=== PATIENT | male | born 1965 | race Caucasian/White ===

== ENCOUNTER 2016-07-18 20:17 | Emergency (ER) | payer OTHER ==
[2016-07-18] MEDS ORDERED: ONDANSETRON 4 MG/2 ML VIAL ONE (20:35)
--- NOTE | 2016-07-18 20:37 | EDPHY ---
H & P - Medical/Surgical History Hx Asthma: Yes Hx Chronic Respiratory Disease: No Hx Diabetes: No Hx Cardiac Disease: No Hx Renal Disease: No Hx Cirrhosis: No Hx Alcoholism: No Hx HIV/AIDS: No Hx Splenectomy or Spleen Trauma: No Other PMH: Childhood asthma, hernia repair, shotsky's ring, fatty tumors, - Social History Smoking Status: Never smoked Time Seen by Provider: 07/18/16 20:36 Constitutional: Initial Vital Signs Temperature (C) 36.4 C 07/18/16 20:39 Heart Rate 103 H 07/18/16 20:39 Respiratory Rate 16 07/18/16 20:39 Blood Pressure 111/79 07/18/16 20:39 O2 Sat (%) 88 L 07/18/16 20:39 O2 Delivery Mode Room Air O2 (L/minute) 2 Allergies/Adverse Reactions: No Known Allergies Allergy (Unverified 07/18/16 20:38) Home Medications: Medication Instructions Recorded Ondansetron Odt [Zofran Odt 4 mg 4 mg PO Q4PRN PRN #7 tab 07/18/16 (*)] Medical Decision Making ED Course/Re-evaluation: CHIEF COMPLAINT: Vomiting, hx of Boerhaave's HISTORY OF PRESENT ILLNESS: The patient is a 51 y/o male arriving with this complaining of vomiting onset today with associated "acid refluxy feel." 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 He presents today due to concern for repeat rupture. He doesn't know the cause of his vomiting today or during the previous episode. He denies other pertinent medical history. REVIEW OF SYSTEMS: A 10 point review of systems was performed and is negative with the exception of the elements mentioned in the history of present illness. PHYSICAL EXAM: HR, BP, O2 Sat, RR. Temp noted General Appearance: Alert, well hydrated, appropriate, pale, uncomfortable appearing Head: Atraumatic without scalp tenderness or obvious injury Eyes: Pupils equal, round, reactive to light and accommodation, EOMI, no trauma , no injection. Ears: Clear bilaterally, no perforation, normal landmarks Nose: Atraumatic, no rhinorrhea, clear. Throat: There is no erythema or exudates, no lesions, normal tonsils, mucus membranes moist. Neck: Supple, 2+ carotid upstroke, nontender, no lymphadenopathy. Respiratory: No retractions, no distress, no wheezes, and no accessory muscle use. Lungs are clear to auscultation bilaterally. Cardiovascular: Regular rate and rhythm, no murmurs, rubs, or gallops. Good capillary refill all extremities. Gastrointestinal: Abdomen is soft, nontender, non-distended, no masses, no rebound, no guarding, no peritoneal signs. Musculoskeletal: Normal active ROM of all extremities, atraumatic. Neurological: Alert, appropriate, and interactive. The patient has normal DTRs and non-focal cranial nerves, motor, sensory, and cerebellar exam. Skin: No rashes, good turgor, no nodules on palpation. Past medical history: Boerhaave ruptured esophagus, Schatzki ring Past surgical history: esophagus rupture requiring emergent thoracotomy by Dr. Stubbs 03/20/15; cholecystectomy Family history: Noncontributory Social history: at bedside DIFFERENTIAL DIAGNOSIS: The differential diagnosis for the patient's nausea and vomiting included but was not limited to gastroenteritis, gastritis, appendicitis, and medication side effect. 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 He appears pale and uncomfortable on exam. He is not actively vomiting. His abdomen is benign. I consulted with radiologist to determine the best imaging to rule out recurrent rupture. He recommended an esophagram. Plan to control nausea and prevent vomiting. IV established. Labs drawn including CBC, CHEM, lipase, LFTs. 2L IV NS , 4mg IV Zofran, and 12.5mg IV Phenergan administered. 2100: Patient signed out to Dr. Almaguer at shift change pending imaging results. Dr. Almaguer will discharge home with diagnosis of gastroenteritis if esophagram is normal. (Torsten Adan) 2100: The patient is signed out to me at change of shift. The patient is awaiting his esophagram. 2214: I discussed the result with Dr. Kj Claudio. Normal esophagram. Please refer to his dictated report. I discussed the result with the patient answered all his questions. The patient has had no further nausea or vomiting in the emergency department. He states his pain has improved. On repeat exam is abdomen is soft, nontender nondistended. He has clear breath sounds bilaterally. Patient was given warnings prior to leaving. He will return with worsening symptoms. He was given Zofran upon discharge. (Marie Almaguer) - Data Points Laboratory Results: Laboratory Results 07/18/16 20:39 07/18/16 20:39 07/18/16 07/18/16 20:39 20:39 WBC 10.89 10^3/uL H 10^3/uL (3.80-9.50) RBC 5.60 10^6/uL 10^6/uL (4.40-6.38) Hgb 17.2 g/dL g/dL (13.7-17.5) Hct 49.0 % % (40.0-51.0) MCV 87.5 fL fL (81.5-99.8) MCH 30.7 pg pg (27.9-34.1) MCHC 35.1 g/dL g/dL (32.4-36.7) RDW 12.0 % % (11.5-15.2) Plt Count 255 10^3/uL 10^3/uL (150-400) MPV 10.1 fL fL (8.7-11.7) Neut % (Auto) 85.5 % H % (39.3-74.2) Lymph % (Auto) 9.6 % L % (15.0-45.0) Bullock % (Auto) 3.9 % L % (4.5-13.0) Eos % (Auto) 0.3 % L % (0.6-7.6) Baso % (Auto) 0.3 % % (0.3-1.7) Nucleat RBC Rel Count 0.0 % % (0.0-0.2) Absolute Neuts (auto) 9.33 10^3/uL H 10^3/uL (1.70-6.50) Absolute Lymphs (auto) 1.04 10^3/uL 10^3/uL (1.00-3.00) Absolute Monos (auto) 0.42 10^3/uL 10^3/uL (0.30-0.80) Absolute Eos (auto) 0.03 10^3/uL 10^3/uL (0.03-0.40) Absolute Basos (auto) 0.03 10^3/uL 10^3/uL (0.02-0.10) Absolute Nucleated RBC 0.00 10^3/uL 10^3/uL (0-0.01) Immature Gran % 0.4 % % (0.0-1.1) Immature Gran # 0.04 10^3/uL 10^3/uL (0.00-0.10) Sodium 138 mEq/L mEq/L (134-144) Potassium 4.4 mEq/L mEq/L (3.5-5.2) Chloride 104 mEq/L mEq/L (97-110) Carbon Dioxide 21 mEq/l L mEq/l (22-31) Anion Gap 13 mEq/L mEq/L (8-16) BUN 24 mg/dL H mg/dL (7-23) Creatinine 1.0 mg/dL mg/dL (0.7-1.3) Estimated GFR > 60 Glucose 122 mg/dL H mg/dL (70-100) Calcium 9.4 mg/dL mg/dL (8.5-10.4) Total Bilirubin 1.7 mg/dL H mg/dL (0.1-1.4) Conjugated Bilirubin 0.4 mg/dL mg/dL (0.0-0.5) Unconjugated Bilirubin 1.3 mg/dL H mg/dL (0.0-1.1) AST 28 IU/L IU/L (17-59) ALT 36 IU/L IU/L (21-72) Alkaline Phosphatase 73 IU/L IU/L (38-126) Total Protein 6.9 g/dL g/dL (6.3-8.2) Albumin 4.1 g/dL g/dL (3.5-5.0) Lipase 76.0 IU/L IU/L (23-300) Medications Given: Discontinued Medications Sodium Chloride (Ns) 1,000 mls @ 0 mls/hr IV ONCE ONE PRN Reason: Wide Open Stop: 07/18/16 20:45 Last Admin: 07/18/16 20:49 Dose: 1,000 mls Sodium Chloride (Ns) 1,000 mls @ 0 mls/hr IV ONCE ONE PRN Reason: Wide Open Stop: 07/18/16 20:45 Last Admin: 07/18/16 20:50 Dose: 1,000 mls Ondansetron HCl (Zofran) 4 mg IVP EDNOW ONE Stop: 07/18/16 20:45 Last Admin: 07/18/16 20:50 Dose: 4 mg Promethazine HCl (Phenergan) 12.5 mg IVP EDNOW ONE Stop: 07/18/16 20:45 Last Admin: 07/18/16 21:42 Dose: 12.5 mg Departure - Departure Disposition: Home, Routine, Self-Care Clinical Impression: Gastroenteritis Condition: Good Instructions: Gastroenteritis (ED) Additional Instructions: Take Zofran as prescribed for nausea and vomiting. Follow up with your primary care provider for symptoms not improved over the weekend. Return to the ED for severe pain, lightheadedness, fainting, uncontrollable vomiting, or other worsening of condition. Referrals: SAMANTHA BOOTH [Primary Care Provider] - As per Instructions Prescriptions: Ondansetron Odt [Zofran Odt 4 mg (*)] 4 mg PO Q4PRN PRN #7 tab PRN Reason: For Nausea & Vomiting Report Scribed for: Torsten Adan Report Scribed by: Jaqui Martin Date of Report: 07/18/16 Time of Report: 20:41
[2016-07-18] MEDS ORDERED: ONDANSETRON 4 MG/2 ML VIAL IVP ONE (20:44)
[2016-07-18] MEDS ORDERED: NS 1,000 ML IV ONE ×2 (20:44)
[2016-07-18] MEDS ORDERED: PROMETHAZINE HCL 25 MG/ML INJ IVP ONE (20:44)
[2016-07-18 20:52] LABS: % IMMATURE GRANULYOCYTES 0.4 % (0.0-1.1); ABSOLUTE IMMATURE GRANULOCYTES 0.04 10^3/uL (0.00-0.10); ADD DIFF? NO; ADD MORPH? NO; ADD SCAN? NO; ATYPICAL LYMPHOCYTE FLAG 0 (0-99); FRAGMENT RBC FLAG 0 (0-99); HEMOGLOBIN 17.2 g/dL (13.7-17.5); LEFT SHIFT FLG 0 (0-99); LIPEMIA HEMOLYSIS FLAG 90 (0-99); MEAN CELL HEMOGLOBIN 30.7 pg (27.9-34.1); MEAN CELL HEMOGLOBIN CONCENTR. 35.1 g/dL (32.4-36.7); MEAN CELL VOLUME 87.5 fL (81.5-99.8); MEAN PLATELET VOLUME 10.1 fL (8.7-11.7); PLATELET CLUMPS FLAG 10 (0-99); PLATELET COUNT 255 10^3/uL (150-400)
[2016-07-18 21:07] LABS: ALANINE AMINOTRANSFERASE 36 IU/L (21-72); ALBUMIN 4.1 g/dL (3.5-5.0); ALKALINE PHOSPHATASE 73 IU/L (38-126); ANION GAP 13 mEq/L (8-16); ASPARTATE AMINOTRANSFERASE 28 IU/L (17-59); BILIRUBIN,TOTAL 1.7 mg/dL (0.1-1.4); BILIRUBIN-CONJUGATED 0.4 mg/dL (0.0-0.5); BILIRUBIN-UNCONJUGATED 1.3 mg/dL (0.0-1.1); CALCIUM 9.4 mg/dL (8.5-10.4); CARBON DIOXIDE 21 mEq/l (22-31); CHLORIDE 104 mEq/L (97-110); GLOMERULAR FILTRATION RATE > 60; GLUCOSE 122 mg/dL (70-100); POTASSIUM 4.4 mEq/L (3.5-5.2); SODIUM 138 mEq/L (134-144); TOTAL PROTEIN 6.9 g/dL (6.3-8.2)
[2016-07-18] MEDS ORDERED: ONDANSETRON 4MG PREPACK#2 BTL TAKEHOME ONE (22:22)
[2016-07-18 22:37] VITALS: BP 113/69; PULSE 88; RESP 16; TEMP 98.2; O2SAT 99
== END 2016-07-18 22:37 | disposition home or self-care (01) ==
DX: K52.9 Noninfective gastroenteritis and colitis, unspecified (principal); J45.909 Unspecified asthma, uncomplicated
CPT/HCPCS: 96374; J2405; J2550

== ENCOUNTER → 2018-10-06 | Outpatient (CLI) | payer OTHER | LOC: FIMAGING 16:56 | PROVIDERS: ATTEND Internal Medicine Pulmonary Disease | DX: J40 Bronchitis, not specified as acute or chronic (principal) ==